=== PATIENT | female | born 1975 | race Caucasian/White ===

== ENCOUNTER 2016-10-20 10:46 | Emergency (ER) | payer BC, SELFPAY ==
[~2016-10-20] VITALS: Ht 170.2 cm; Wt 68.2 kg
[2016-10-20] MEDS ORDERED: OXYC20TA2 PO ×2 (11:24→12:04)
[2016-10-20] MEDS ORDERED: GABA100C8 PO (11:25)
[2016-10-20] MEDS ORDERED: DIAZ5TAB PO (11:25)
[2016-10-20] MEDS ORDERED: SODIUM CHLORIDE 0.9% 1,000 ML IV ONE (11:41)
[2016-10-20] MEDS ORDERED: ONDANSETRON 2MG/ML, 2ML ONE (11:46)
[2016-10-20] MEDS ORDERED: HYDROmorphone 1 MG/ML, 1ML ONE ×2 (11:46→12:46)
[2016-10-20] MEDS: HYDROmorphone 1 MG/ML, 1ML IVPush PRN ×2 (11:59→12:48)
[2016-10-20] MEDS ORDERED: SODIUM CHLORIDE FLUSH 10ML SYR IVF ONE (12:00)
[2016-10-20] MEDS ORDERED: SODIUM CHLORIDE 0.9% 1,000ML IVBOLUS ONE (12:00)
[2016-10-20] MEDS ORDERED: ONDANSETRON 2MG/ML, 2ML IVPush ONE (12:00)
[2016-10-20] MEDS ORDERED: OXYC10TA32 PO (12:04)
[2016-10-20 12:26] LABS: HEMOGLOBIN 14.2 g/dL (11.7-16.4)
[2016-10-20 12:35] LABS: ASPARTATE AMINO TRANSFERASE 9 U/L (15-37); BLOOD UREA NITROGEN 8 mg/dL (7-18)
[2016-10-20 13:10] VITALS: BP 110/70
== END 2016-10-20 13:12 | disposition home or self-care (01) ==
LOC: ED 11:30
DX: R10.11 Right upper quadrant pain (principal); R10.13 Epigastric pain
CPT/HCPCS: 36415; 76700; 80053; 81001; 83690; 85025; 87086; 96374; 96375; 96376; 99285; J1170; J2405; J7030

== ENCOUNTER 2018-06-27 10:32 | Emergency (ER) | payer OTHER ==
[~2018-06-27] VITALS: Ht 170.2 cm; Wt 69.0 kg
[~2018-06-27 10:32] MED LIST: DIAZ5TAB PO; GABA-826 PO; OXYC10TA47 PO; OXYC20TA2 PO; OXYM10TA22 PO
[2018-06-27 11:08] VITALS: BP 111/60
[2018-06-27] MEDS ORDERED: KETOROLAC 30 MG/1 ML IM ONE (12:30)
[2018-06-27] MEDS ORDERED: DIAZEPAM 5 MG TABLET PO ONE (12:30)
[2018-06-27] MEDS ORDERED: HYDROmorphone 1 MG/ML, 1ML IM ONE (12:30)
[2018-06-27] MEDS ORDERED: DIAZEPAM 5 MG TABLET ONE (12:36)
[2018-06-27] MEDS ORDERED: KETOROLAC 30 MG/1 ML ONE (12:37)
[2018-06-27] MEDS ORDERED: HYDROmorphone 2 MG/ML, 1ML ONE (12:37)
== END 2018-06-27 13:10 | disposition home or self-care (01) ==
LOC: ED 12:43
DX: G89.11 Acute pain due to trauma (principal); R07.89 Other chest pain; M54.2 Cervicalgia; M54.6 Pain in thoracic spine; M54.5 Low back pain; M54.9 Dorsalgia, unspecified; G89.29 Other chronic pain; Z90.710 Acquired absence of both cervix and uterus
CPT/HCPCS: 71101; 96372; 99283; J1170; J1885

== ENCOUNTER 2019-05-23 21:29 | Inpatient (IN) | payer OTHER ==
[~2019-05-23] VITALS: Ht 170.2 cm; Wt 64.1 kg
[2019-05-23] MEDS ORDERED: SODIUM CHLORIDE FLUSH 10ML SYR IVF ONE (22:00)
[2019-05-23] MEDS ORDERED: ONDANSETRON 2MG/ML, 2ML IVPush ONE (22:00)
[2019-05-23] MEDS ORDERED: HYDROmorphone 2 MG/ML, 1ML IVPush ONE ×2 (22:00→23:00)
[2019-05-23] MEDS ORDERED: HYDROmorphone 1 MG/ML, 1ML VIAL ONE (22:08)
[2019-05-23] MEDS ORDERED: ONDANSETRON 2MG/ML, 2ML ONE (22:08)
--- NOTE | 2019-05-23 22:15 | NUR ---
IV STARTED, BLOOD DRAWN, PT MEDICATED PER ORDERS. RV'WD POC WITH PT. SIGNIFICANT OTHER AT BS.
[2019-05-23 22:16] LABS: BASOPHILS # (AUTO) 0.08 x10^3/uL (0-0.1); BASOPHILS % (AUTO) 1 % (0-1); EOSINOPHILS # (AUTO) 0.05 x10^3/uL (0-0.4); EOSINOPHILS % (AUTO) 1 % (1-7); LYMPHOCYTES # (AUTO) 2.52 x10^3/uL (1-3.4); LYMPHOCYTES % (AUTO) 21 % (22-44); MD NO; MEAN CORPUSCULAR HEMOGLOBIN 30.3 pg (27.0-34.8); MEAN CORPUSCULAR HGB CONC 33.1 g/dL (32.4-35.8); MEAN CORPUSCULAR VOLUME 91.6 fL (80-100); MONOCYTES # (AUTO) 0.74 x10^3/uL (0.2-0.8); MONOCYTES % (AUTO) 6 % (2-9); NEUTROPHILS # (AUTO) 8.49 x10^3/uL (1.8-6.8); NEUTROPHILS % (AUTO) 71 % (42-75); PLATELET COUNT 207 x10^3/uL (130-400); RED BLOOD COUNT 4.89 x10^6/uL (3.82-5.3)
[2019-05-23 22:27] LABS: ALANINE AMINOTRANSFERASE 60 U/L (12-78); ALBUMIN 3.8 g/dL (3.4-5.0); ANION GAP 6 mmol/L (5-15); CALCIUM 10.8 mg/dL (8.5-10.1); CHLORIDE 107 mmol/L (98-107); CREATININE 0.61 mg/dL (0.55-1.02)
[2019-05-23 22:30] LABS: ALKALINE PHOSPHATASE 72 U/L (45-117); BILIRUBIN,TOTAL 0.3 mg/dL (0.2-1.0); TOTAL PROTEIN 6.7 g/dL (6.4-8.2)
--- NOTE | 2019-05-23 22:39 | NUR ---
PT REQUIRED PAIN MED BEFORE CT.
--- NOTE | 2019-05-23 22:55 | NUR ---
PT REQUESTED ANOTHER DOSE OF DILAUDID FOR ABD PAIN. ERP NOTIFIED, NEW ORDER RC'DERREK. PT TO CT VIA [facility].
[2019-05-23] MEDS ORDERED: HYDROmorphone 1 MG/ML, 1ML VIAL IVPush ONE (23:00)
[2019-05-23] MEDS ORDERED: OMNIPAQUE 350 MG/ML, 100ML BOTTLE ONE (23:05)
--- NOTE | 2019-05-23 23:45 | NUR ---
PT REPORTS ABD PAIN IMPROVED AFTER 2ND DOSE DILAUDID. UPDATED PT ON PLAN FOR ABD US. SIG OTHER REMAINS AT BS.
--- NOTE | 2019-05-24 00:25 | NUR ---
PT C/O NAUSEA AGAIN AND INCREASING ABD PAIN. ERP NOTIFIED.
--- NOTE | 2019-05-24 00:43 | NUR ---
PT TO US VIA [facility].
[2019-05-24] MEDS ORDERED: ONDANSETRON 2MG/ML, 2ML IVPush ONE (01:30)
[2019-05-24] MEDS ORDERED: ONDANSETRON 2MG/ML, 2ML ONE ×2 (01:35→15:03)
--- NOTE | 2019-05-24 01:42 | NUR ---
PT MEDICATED WITH ZOFRAN AGAIN FOR NAUSEA. REQUESTING MORE PAIN MEDICATION FOR ABD PAIN & BACK PAIN, OR WANTS TO TAKE HER HOME MED OXYCODONE. ERP AWARE, AWAITING RESULTS OF US.
--- NOTE | 2019-05-24 01:52 | NUR ---
ERP AT FOR RECHECK.
[2019-05-24] MEDS ORDERED: HYDROmorphone 1 MG/ML, 1ML VIAL ONE (02:00)
--- NOTE | 2019-05-24 02:08 | NUR ---
PT MEDICATED WITH ANOTHER 0.5MG DILAUDID FOR PAIN "EVERYWHERE". UNDERSTANDS POC. SIGNNIFICANT OTHER REMAINS AT BS.
--- NOTE | 2019-05-24 02:16 | NUR ---
REPORTED TO LEONARDA GAMEZ.
[2019-05-24] MEDS ORDERED: HYDROmorphone 1 MG/ML, 1ML VIAL IVPush PRN (02:30)
--- NOTE | 2019-05-24 02:35 | NUR ---
ASSUMED CARE OF PT AT THIS TIME
--- NOTE | 2019-05-24 02:37 | NUR ---
(SERVANDO KNOX) CALL WHEN KNOW IF ADMIT OR DC. CELL [phone].
[2019-05-24] MEDS ORDERED: SODIUM CHLORIDE 0.9% 1,000 ML IV ONE (03:07)
[2019-05-24] MEDS ORDERED: ONDANSETRON 2MG/ML, 2ML IVPush PRN ×2 (03:30)
[2019-05-24] MEDS ORDERED: HYDROmorphone 1 MG/ML, 1ML INJ IVPush PRN (03:30)
[2019-05-24] MEDS ORDERED: SODIUM CHLORIDE FLUSH 10ML SYR IVF PRN (03:30)
[2019-05-24 04:14] VITALS: BP 117/75
[2019-05-24 07:41] VITALS: BP 97/57
[2019-05-24] MEDS ORDERED: PRED5TAB PO (09:19)
[2019-05-24] MEDS ORDERED: OXYC10TA6 PO (09:19)
[2019-05-24] MEDS ORDERED: ESTR50GE TP (09:19)
[2019-05-24] MEDS ORDERED: SINCALIDE (KINEVAC) 5 MCG ONE (09:57)
[2019-05-24] MEDS: HYDROmorphone 2 MG/ML, 1ML IVPush PRN ×5 (10:51→20:03)
[2019-05-24] MEDS ORDERED: CEFOTETAN 2 GM ONE (10:59)
[2019-05-24] MEDS: NICOTINE 21 MG/24 HR PATCH.TD24 TD SCH (11:12)
[2019-05-24 11:26] LABS: ALBUMIN 3.8 g/dL (3.4-5.0)
[2019-05-24 11:30] LABS: BILIRUBIN, DIRECT 0.1 mg/dL (0.1-0.2); BILIRUBIN,INDIRECT 0.4 mg/dL (0.0-2.0); BILIRUBIN,TOTAL 0.5 mg/dL (0.2-1.0); TOTAL PROTEIN 6.7 g/dL (6.4-8.2)
[2019-05-24 12:30] LABS: MICROSCOPIC AUTO
[2019-05-24] MEDS ORDERED: MIDAZOLAM 1 MG/ML, 5ML ONE (14:18)
[2019-05-24] MEDS ORDERED: FENTANYL PF 250 MCG/5ML ONE (14:18)
[2019-05-24] MEDS ORDERED: BUPIVACAINE/PF 0.5% ONE (14:21)
[2019-05-24] MEDS ORDERED: EPINEPHRINE 1 MG/ML, 1ML ONE (14:21)
[2019-05-24] MEDS ORDERED: OXYcodone 5 MG/5 ML ORAL.SOL UDC PO PRN (14:30)
[2019-05-24] MEDS ORDERED: FAMOTIDINE 20 MG TABLET PO ONE (14:30)
[2019-05-24] MEDS ORDERED: hydrALAzine 20 MG/ML, 1ML IV PRN (14:30)
[2019-05-24] MEDS ORDERED: OxyconTIN ER 20 MG TAB.ER PO ONE (14:30)
[2019-05-24] MEDS ORDERED: GABAPENTIN 300 MG CAPSULE PO ONE (14:30)
[2019-05-24] MEDS ORDERED: HYDROmorphone 2 MG/ML, 1ML IVPush PRN (14:30)
[2019-05-24] MEDS ORDERED: PROMETHAZINE 25 MG/ML, 1ML IV PRN (14:30)
[2019-05-24] MEDS ORDERED: MEPERIDINE/PF 25MG/ML,1ML IVPush PRN (14:30)
[2019-05-24] MEDS ORDERED: MIDAZOLAM 1 MG/ML, 2ML IV PRN (14:30)
[2019-05-24] MEDS ORDERED: ONDANSETRON 2MG/ML, 2ML IV PRN (14:30)
[2019-05-24] MEDS ORDERED: LABETALOL 5 MG/ML SYR. (IV ONLY) IV PRN (14:30)
[2019-05-24] MEDS ORDERED: DEXAMETHASONE 4 MG/ML, 1ML ONE ×2 (14:58)
[2019-05-24] MEDS ORDERED: ROCURONIUM 10MG/ML,5ML ONE (15:03)
[2019-05-24] MEDS ORDERED: PROPOFOL 10 MG/ML, 20ML ONE (15:03)
[2019-05-24] MEDS ORDERED: HYDROmorphone 2 MG/ML, 1ML ONE (15:42)
[2019-05-24] MEDS ORDERED: OXYcodone 5 MG/5 ML ORAL.SOL UDC ONE (15:42)
[2019-05-24] MEDS ORDERED: DIAZEPAM 5 MG/ML, 2ML ONE (15:42)
[2019-05-24] MEDS: DIAZEPAM 5 MG/ML, 2ML IVPush PRN ×2 (15:46→16:05)
[2019-05-24] MEDS ORDERED: FENTANYL PF 100 MCG/2ML ONE (15:55)
[2019-05-24] MEDS: FENTANYL PF 100 MCG/2ML IV PRN ×2 (15:57→16:06)
[2019-05-24 16:45] VITALS: BP 130/77
[2019-05-24] MEDS: OXYcodone IR 5MG TABLET PO PRN ×2 (19:48→23:56)
[2019-05-24] MEDS: DIAZEPAM 5 MG TABLET PO SCH (21:10)
[2019-05-24] MEDS: GABAPENTIN 300 MG CAPSULE PO SCH (21:10)
[2019-05-25 00:18] VITALS: BP 148/84
[2019-05-25] MEDS: HYDROmorphone 2 MG/ML, 1ML IVPush PRN ×3 (01:16→08:39)
[2019-05-25 05:14] LABS: BASOPHILS # (AUTO) 0.01 x10^3/uL (0-0.1); BASOPHILS % (AUTO) 0 % (0-1); EOSINOPHILS # (AUTO) 0.01 x10^3/uL (0-0.4); EOSINOPHILS % (AUTO) 0 % (1-7); LYMPHOCYTES # (AUTO) 1.27 x10^3/uL (1-3.4); LYMPHOCYTES % (AUTO) 8 % (22-44); MD NO; MEAN CORPUSCULAR HEMOGLOBIN 30.2 pg (27.0-34.8); MEAN CORPUSCULAR HGB CONC 32.4 g/dL (32.4-35.8); MEAN CORPUSCULAR VOLUME 93.3 fL (80-100); MEAN PLATELET VOLUME 10.4 fL (7.4-10.4); MONOCYTES % (AUTO) 5 % (2-9); NEUTROPHILS # (AUTO) 13.09 x10^3/uL (1.8-6.8); NEUTROPHILS % (AUTO) 86 % (42-75); PLATELET COUNT 232 x10^3/uL (130-400); RED BLOOD COUNT 5.16 x10^6/uL (3.82-5.3); RED CELL DISTRIBUTION WIDTH 13.6 % (9.6-15.2)
[2019-05-25] MEDS: OXYcodone IR 5MG TABLET PO PRN ×3 (05:14→09:28)
[2019-05-25] MEDS: GABAPENTIN 300 MG CAPSULE PO SCH ×2 (05:15→10:57)
[2019-05-25 05:16] LABS: ALANINE AMINOTRANSFERASE 94 U/L (12-78); ALBUMIN 3.6 g/dL (3.4-5.0); ANION GAP 5 mmol/L (5-15); CALCIUM 9.8 mg/dL (8.5-10.1); CHLORIDE 108 mmol/L (98-107); CREATININE 0.71 mg/dL (0.55-1.02)
[2019-05-25 05:19] LABS: ALKALINE PHOSPHATASE 68 U/L (45-117); BILIRUBIN,TOTAL 0.2 mg/dL (0.2-1.0); TOTAL PROTEIN 6.5 g/dL (6.4-8.2)
[2019-05-25 07:34] VITALS: BP 108/67
[2019-05-25] MEDS: NICOTINE 21 MG/24 HR PATCH.TD24 TD SCH (08:30)
[2019-05-25] MEDS: DIAZEPAM 5 MG TABLET PO SCH (08:30)
[2019-05-25] MEDS ORDERED: ESTRADIOL HOMETP SCH (09:00)
== END 2019-05-25 12:49 | disposition home or self-care (01) | DRG 418 ==
LOC: ED 23:59 → EDIP 05-24 03:07 → 4NE 05-24 03:30 → DCLOUNGE 05-25 12:43
PROVIDERS: ADMIT Internal Medicine; ATTEND Internal Medicine
PROC: 8E0W4CZ Robotic Assisted Procedure of Trunk Region, Percutaneous Endoscopic Approach (ICD-10-PCS; 2019-05-24)
PROC: 0FT44ZZ Resection of Gallbladder, Percutaneous Endoscopic Approach (ICD-10-PCS; principal; 2019-05-24 14:30)
DX: K80.00 Calculus of gallbladder with acute cholecystitis without obstruction (principal); F11.20 Opioid dependence, uncomplicated; E83.52 Hypercalcemia; F17.210 Nicotine dependence, cigarettes, uncomplicated; G89.29 Other chronic pain; Z80.7 Family history of other malignant neoplasms of lymphoid, hematopoietic and related tissues; Z88.5 Allergy status to narcotic agent; Z90.710 Acquired absence of both cervix and uterus; Z88.6 Allergy status to analgesic agent; Z88.8 Allergy status to other drugs, medicaments and biological substances; Z71.6 Tobacco abuse counseling; Z98.1 Arthrodesis status
CPT/HCPCS: 36415; 99285; J3490; S0020; 74177; 76700; 78227; 80053; 80076; 81001; 83690; 85025; 88304; G0378; J0171; J1100; J1170; J2250; J2405; J2704; J3010; J3360; Q9967; A9537; C9898; J2805; J7030; J7512

== ENCOUNTER 2020-09-19 11:06 | Emergency (ER) | payer OTHER ==
[~2020-09-19] VITALS: Ht 170.2 cm; Wt 65.8 kg
[~2020-09-19 11:06] MED LIST changes: +ESTR50GE TP; +OXYC10TA6 PO; +PRED5TAB PO
--- NOTE | 2020-09-19 11:09 | NUR ---
WENT TO CAR TO RETRIEVE BELONGINGS AFTER BEING REGISTERED BUT BEFORE BEING TRIAGED. SPREADER AWARE
--- NOTE | 2020-09-19 11:24 | NUR ---
PT C/O BLOOD IN STOOL AFTER GOING TO THE BATHROOM. PT DENIES HX OF HEMORRHOIDS. PT C/O ABD CRAMPTING ACROSS LOWER ABD. PT C/O NAUSEA, NO VOMITING.
--- NOTE | 2020-09-19 11:32 | NUR ---
PT DESCRIBES BLEEDING BRIGHT RED EXCEPT FOR A CLOT THAT WAS DARK RED
--- NOTE | 2020-09-19 11:34 | NUR ---
BEDSIDE FOR EXAM
[2020-09-19 11:55] LABS: BASOPHILS % (AUTO) 1 % (0-1); EOSINOPHILS % (AUTO) 0 % (1-7); LYMPHOCYTES % (AUTO) 9 % (22-44); MEAN CORPUSCULAR HEMOGLOBIN 30.1 pg (27.0-34.8); MEAN PLATELET VOLUME 9.5 fL (7.4-10.4); MONOCYTES % (AUTO) 3 % (2-9); NEUTROPHILS % (AUTO) 88 % (42-75); PLATELET COUNT 232 x10^3/uL (130-400); RED CELL DISTRIBUTION WIDTH 12.6 % (9.6-15.2)
[2020-09-19 12:01] LABS: ALBUMIN 4.2 g/dL (3.4-5.0); ANION GAP 6 mmol/L (5-15); CALCIUM 10.6 mg/dL (8.5-10.1); CHLORIDE 110 mmol/L (98-107); CREATININE 0.66 mg/dL (0.55-1.02)
[2020-09-19 12:12] LABS: MD SCAN
[2020-09-19 13:06] VITALS: BP 98/61
--- NOTE | 2020-09-19 14:06 | NUR ---
Patient given discharge instructions and they have confirmed that they understand the instructions. Patient ambulatory with steady gait.
== END 2020-09-19 14:16 | disposition home or self-care (01) ==
LOC: ED 12:34
DX: K64.4 Residual hemorrhoidal skin tags (principal); F17.210 Nicotine dependence, cigarettes, uncomplicated
CPT/HCPCS: 36415; 80048; 82040; 85025; 99283; 99406